=== PATIENT | female | born 1995 | race American Indian/Alaskan Native ===

== ENCOUNTER 2017-10-12 00:39 | Emergency (ER) | payer OTHER ==
[2017-10-12 01:30] VITALS: BP 113/86
[2017-10-12] MEDS ORDERED: MOTRIN PO ONE (01:31)
--- NOTE | 2017-10-12 02:32 | XRay Report ---
FINAL REPORT EXAM: XR SPINE LUMBOSACRAL 2-3V HISTORY: lower back pain TECHNIQUE: AP and lateral views of the lumbar spine were obtained. FINDINGS: There are no skeletal or soft tissue abnormalities. The SI joints appear normal. IMPRESSION: Normal exam.
== END 2017-10-12 04:17 | disposition left against medical advice (07) ==
LOC: ED 00:39
DX: R07.89 Other chest pain (principal); Z53.21 Procedure and treatment not carried out due to patient leaving prior to being seen by health care provider
CPT/HCPCS: 72100; 93005; 93010